=== PATIENT | female | born 1930 | race Caucasian/White ===

== ENCOUNTER 2016-08-10 10:24 | Emergency (ER) | payer MEDICARE, OTHER ==
[~2016-08-10] VITALS: Ht 157.5 cm; Wt 63.5 kg
[2016-08-10] MEDS ORDERED: CLONAZEPAM0.5 MG PO (10:34)
[2016-08-10] MEDS ORDERED: LOVASTATIN40 MG PO (10:35)
[2016-08-10] MEDS ORDERED: LEVOTHYROXINE75 MCG PO (10:35)
[2016-08-10] MEDS ORDERED: LANTUS SOL100 UNIT/1 SUB-Q (10:35)
[2016-08-10] MEDS ORDERED: ASPIR 8181 MG PO (10:36)
[2016-08-10] MEDS ORDERED: CIPRO500 MG PO (12:13)
--- NOTE | 2016-08-10 20:57 | EKG ---
[facility] [address] [facility] [place] [address] Signed Normal sinus rhythm with sinus arrhythmia Normal ECG No previous ECGs available Confirmed by ЕЛЕНА GARCIA MD ([id number]) on 08/10/2016 8:57:06 PM Electronically Signed By: ЕЛЕНА GARCIA MD 08/10/167 PATIENT NAME: VANCE ALLAN Esperanza Electrocardiogram DATE OF : 32 PHYSICIAN: ЕЛЕНА GARCIA MD REPORT #: [id number] REPORT IS CONFIDENTIAL AND NOT TO BE RELEASED WITHOUT AUTHORIZATION
== END 2016-08-10 12:53 | disposition home or self-care (01) ==
LOC: ED 10:24
DX: N39.0 Urinary tract infection, site not specified (principal); R53.1 Weakness; E11.9 Type 2 diabetes mellitus without complications; Z79.4 Long term (current) use of insulin; Z79.899 Other long term (current) drug therapy; Z79.82 Long term (current) use of aspirin
CPT/HCPCS: 70450; 71010; 80053; 81001; 84484; 85025; 85610; 85730; 87077; 87088; 87186; 93005; 93010; 99284

== ENCOUNTER 2017-06-06 09:11 | Emergency (ER) | payer MEDICARE, OTHER ==
[~2017-06-06] VITALS: Ht 157.5 cm; Wt 63.5 kg
--- OUTSIDE RECORDS SUMMARY | ~2017-06-06 | XMS | Clinical Summary ---
Demographics + + + | Address | [address] | | | [place] [address] | + + + | Home Phone | | + + + | Preferred Language | Unknown | + + + | Marital Status | | + + + | Holiness Affiliation | Unknown | + + + | Race | White | + + + | Ethnic Group | Not or | + + + Author + + + | Organization | Unknown | + + + | Address | Unknown | + + + | Phone | Unavailable | + + + Support + + + + + | Name | Relationship | Address | Phone | + + + + + | TUAN ALLAN | ECON | [address] | | | | | [place] | | | | | [address] | | + + + + + Care Team Providers + +------+ + | Care Inspector Hairspring Name | Role | Phone | + +------+ + PP | Unavailable | + +------+ + Source Comments MARYAM is fully live on both [facility] Ambulatory and [facility] InPatient.[facility] Allergies Not on File Current Medications Not on file Active Problems Not on file Social History + +-------+ +--------+------+ | Tobacco Use | Types | Packs/Day | Years | Date | | | | | Used | | + +-------+ +--------+------+ | Never Assessed | | | | | + +-------+ +--------+------+ + + + | Sex Assigned at | Date Recorded | | | | + + + | Not on file | | + + + Plan of Treatment + + + + + | Health Maintenance | Due Date | Last Done | Comments | + + + + + | INFLUENZA VACCINE | | | | | (FLU SHOT) | 8 | | | + + + + + Results Not on filefrom Last 3 Months"
--- OUTSIDE RECORDS SUMMARY | ~2017-06-06 | XMS | Clinical Summary ---
Demographics + + + | Address | [address] | | | [place] [address] | + + + | Home Phone | | + + + | Preferred Language | Unknown | + + + | Marital Status | | + + + | Jewish Affiliation | Unknown | + + + [...] [place] | | | | | [id number] | | + + + + + Care Team Providers + +------+ + | Care Conveyor Weigher Operator Name | Role | Phone | + +------+ + PP | Unavailable | + +------+ + Source Comments MARYAM is fully live on both [facility] Ambulatory and [facility] InPatient.[facility] Allergies Not on File Current Medications [...]
[~2017-06-06 09:11] MED LIST: ASPIR 8181 MG PO; CIPRO500 MG PO; CLONAZEPAM0.5 MG PO; LANTUS SOL100 UNIT/1 SUB-Q; LEVOTHYROXINE75 MCG PO; LOVASTATIN40 MG PO
[2017-06-06] MEDS ORDERED: TRESIBA FL100 UNIT/1 SUB-Q (09:22)
--- NOTE | 2017-06-06 21:58 | EKG ---
[facility] [address] [facility] [place], [place] [address] Signed Normal sinus rhythm Normal ECG When compared with ECG of 10-AUG-2016 11:32, No significant change was found Confirmed by ЕЛЕНА GARCIA MD ([id number]) on 06/06/2017 9:58:17 PM Electronically Signed By: ЕЛЕНА GARCIA MD 06/06/17 2158 PATIENT NAME: JERRELLNIVANCE J Electrocardiogram DATE OF : 32 PHYSICIAN: ЕЛЕНА GARCIA MD REPORT #: [id number] REPORT IS CONFIDENTIAL AND NOT TO BE RELEASED WITHOUT AUTHORIZATION
== END 2017-06-06 12:22 | disposition short-term general hospital (02) ==
LOC: ED 09:11
PROC: 0T9B70Z Drainage of Bladder with Drainage Device, Via Natural or Artificial Opening (ICD-10-PCS; principal; 2017-06-06)
DX: I74.5 Embolism and thrombosis of iliac artery (principal); E11.9 Type 2 diabetes mellitus without complications; Z88.0 Allergy status to penicillin; Z79.4 Long term (current) use of insulin; Z79.899 Other long term (current) drug therapy
CPT/HCPCS: 51701; 70450; 71045; 74177; 80053; 81001; 83690; 85025; 85610; 87077; 87088; 87186; 93005; 93010; 96374; 99285; J1644; J7040; Q9967